=== PATIENT | male | born 1980 | race Hispanic/Latino ===

== ENCOUNTER 2017-09-09 00:24 | Emergency (ER) | payer SELFPAY ==
--- NOTE | 2017-09-09 01:23 | Emergency Department Report ---
Blank Doc - Documentation Documentation: Mr. Shaw is a 36 years old male history of seizure brought by EMS after one episode of seizure. Patient is alert oriented 3 and able to make his own decision. He is not post ictal at this moment, no confusion. Patient is refusing treatment and he wanted to sign against medical advise. Patient's significant other in the room trying to convince him to stay but he does not want to stay. Patient signed AMA. I informed the patient that he can return to the ER if his symptoms return. Patient stated that he will. Patient understood the risk of leaving the ER without treatment and management which include disability and .
[2017-09-09 01:25] VITALS: BP 173/98
== END 2017-09-09 01:20 | disposition left against medical advice (07) ==
LOC: ED 00:24
DX: R56.9 Unspecified convulsions (principal); Z53.21 Procedure and treatment not carried out due to patient leaving prior to being seen by health care provider